=== PATIENT | female | born 1945 | race Caucasian/White ===

== ENCOUNTER 2017-10-21 05:06 | Inpatient (IN) | payer OTHER, MEDICARE ==
[~2017-10-21] VITALS: Ht 172.7 cm; Wt 70.0 kg
[~2017-10-21 05:06] MED LIST: ACET-2144 PO; ASCO100T10 PO; CALC1TAB PO; CELE-193 PO; CETI-102 PO; DOCU-148; LEVO50TA PO; MAGN500C16 PO; OXYB5TAB11 PO; PREVCR VG; SIMV20TA5 PO; WARF1TAB9 PO; [UNRECOGNIZED DRUG - CODE] PO
[2017-10-21] MEDS ORDERED: normal saline 1000ML IV soln IVB ONE (05:40)
[2017-10-21] MEDS ORDERED: pantoprazole 40 MG vial IV ONE (05:40)
[2017-10-21 05:56] LABS: INR 1.1 INR; PARTIAL THROMBOPLASTIN TIME 25 SECONDS (22-32); PROTHROMBIN TIME 11.1 SECONDS (9.0-12.0)
[2017-10-21 06:00] LABS: ALANINE AMINOTRANSFERASE 18 U/L (12-78); ALBUMIN 3.1 G/DL (3.4-5.0); ALBUMIN/GLOBULIN RATIO 0.9 (1.1-1.5); ALKALINE PHOSPHATASE 56 IU/L (46-116); ANION GAP 8 (8-16); ASPARTATE AMINO TRANSFERASE 14 U/L (10-37); BILIRUBIN,TOTAL 0.4 MG/DL (0.1-1.0); BLOOD UREA NITROGEN 31 MG/DL (7-18); BUN/CREATININE RATIO 43.1 (6.6-38.0); CALCIUM 8.1 MG/DL (8.5-10.1); CHLORIDE 110 MMOL/L (99-107); CREATININE 0.72 MG/DL (0.40-0.90); GLUCOSE 114 MG/DL (70-104); LIPASE 99 U/L (73-393); MAGNESIUM 2.3 MG/DL (1.5-2.4); POTASSIUM 4.2 MMOL/L (3.5-5.1); SODIUM 143 MMOL/L (135-145); TOTAL CARBON DIOXIDE 24.6 MMOL/L (24-32); TOTAL PROTEIN 6.5 G/DL (6.4-8.2); eGFR 80 ML/MIN
[2017-10-21 06:02] LABS: BASOPHILS % (AUTO) 0.7 % (0-1); EOSINOPHILS # (AUTO) 0.3 X10'3 (0-0.9); EOSINOPHILS % (AUTO) 4.6 % (0-6); HEMATOCRIT 34.1 % (35.0-45.0); HEMOGLOBIN 11.5 g/dl (12.0-16.0); LYMPHOCYTES # (AUTO) 1.5 X10'3 (1.1-4.8); LYMPHOCYTES % (AUTO) 22.2 % (21-51); MEAN CORPUSCULAR HEMOGLOBIN 30.6 PG (27.0-31.0); MEAN CORPUSCULAR HGB CONC 33.6 % (33.0-36.5); MEAN PLATELET VOLUME 9.4 FL (7.4-10.4); MONOCYTES # (AUTO) 0.5 X10'3 (0-0.9); MONOCYTES % (AUTO) 7.5 % (2-12); NEUTROPHILS # (AUTO) 4.5 X10'3 (1.8-7.7); PLATELET COUNT 173 X10'3 (140-440); RED BLOOD COUNT 3.75 X10'6 (4.20-5.60); RED CELL DISTRIBUTION WIDTH 13.6 % (11.5-14.5); WHITE BLOOD COUNT 6.9 X10'3 (4.5-11.0)
[2017-10-21] MEDS ORDERED: ondansetron/PF 4mg/2ml inj IV ONE (06:55)
[2017-10-21 08:32] LABS: CLARITY,URINE SLIGHTLY CLOUDY (Clear); COLOR,URINE YELLOW (Yellow); GLUCOSE, URINE NEGATIVE (Neg); KETONES,URINE TRACE mg/dl (Neg); LEUKOCYTE ESTERASE ,URINE MODERATE (Neg); NITRITES, URINE NEGATIVE (Neg); OCCULT BLOOD,URINE LARGE (Neg); PH,URINE 6.5 (4.8-8.0); PROTEIN,URINE TRACE mg/dl (Neg); UROBILINOGEN,URINE 0.2 E.U/dL (0.2-1.0)
[2017-10-21] MEDS ORDERED: pantoprazole IV 80 MG in normal saline 100ml IV soln 100 ML IV ONE ×4 (08:40)
[2017-10-21 08:42] LABS: UA COLLECTION TYPE OTHER
[2017-10-21 08:44] LABS: BACTERIA,URINE 3+ /HPF (Neg); MUCUS STRANDS FEW /LPF (Neg); RBC,URINE 0-2 /HPF (0-2); SQUAMOUS EPITHELIAL CELL,UR FEW /LPF (FEW)
[2017-10-21] MEDS ORDERED: magnesium hydroxide 30ml (MOM) UD suspension PO PRN (09:30)
[2017-10-21] MEDS ORDERED: acetaminophen 325mg tablet PO PRN (09:30)
[2017-10-21] MEDS ORDERED: morphine 4 MG/ML inj SYRINge IV PRN (09:30)
[2017-10-21] MEDS ORDERED: potassium Cl 40MEQ/NS 500ml 500 ML IV PRN ×2 (09:30)
[2017-10-21] MEDS ORDERED: magnesium 2GM in 50ml NS 50 ML IV PRN (09:30)
[2017-10-21] MEDS ORDERED: magnesium Cl slow-release 64mg tablet PO PRN (09:30)
[2017-10-21] MEDS ORDERED: mag hydrox/Alum hydrox/simeth 30ml oral suspension PO PRN (09:30)
[2017-10-21] MEDS ORDERED: magnesium 4gm in 100ml NS 100 ML IV PRN (09:30)
[2017-10-21] MEDS ORDERED: potassium Cl 20 mEq SR tablet PO PRN ×2 (09:30)
[2017-10-21] MEDS: dextrose 5%-1/2 normal saline 1,000 ML IV SCH ×2 (10:52→23:37)
[2017-10-21] MEDS ORDERED: pneumococcal 23-VAL P-sac vacc 25 mcg/0.5ml vial IMVAC ONE (13:45)
[2017-10-21] MEDS: ondansetron/PF 4mg/2ml inj IV PRN ×2 (18:08→22:34)
[2017-10-21] MEDS: pantoprazole 40 MG vial IV SCH (20:44)
[2017-10-21] MEDS: oxybutynin 5mg tablet PO SCH (20:44)
[2017-10-21] MEDS ORDERED: atorvastatin 20mg tablet PO SCH (21:00)
[2017-10-21] MEDS ORDERED: levoTHYROXINE 25mcg tablet PO SCH (21:00)
[2017-10-21] MEDS ORDERED: cetirizine 10mg tablet PO SCH (21:00)
[2017-10-21 22:55] VITALS: BP 153/75
[2017-10-22 02:00] VITALS: BP 134/61
[2017-10-22] MEDS ORDERED: metoclopramide 5 mg/ml inj IV PRN (03:35)
[2017-10-22 05:31] LABS: BASOPHILS % (AUTO) 0.4 % (0-1); EOSINOPHILS # (AUTO) 0.1 X10'3 (0-0.9); EOSINOPHILS % (AUTO) 0.9 % (0-6); HEMATOCRIT 29.6 % (35.0-45.0); HEMOGLOBIN 10.3 g/dl (12.0-16.0); LYMPHOCYTES # (AUTO) 0.8 X10'3 (1.1-4.8); LYMPHOCYTES % (AUTO) 10.8 % (21-51); MEAN CORPUSCULAR HEMOGLOBIN 31.1 PG (27.0-31.0); MEAN CORPUSCULAR HGB CONC 34.7 % (33.0-36.5); MEAN CORPUSCULAR VOLUME 89.7 FL (78-98); MEAN PLATELET VOLUME 9.1 FL (7.4-10.4); MONOCYTES # (AUTO) 0.2 X10'3 (0-0.9); MONOCYTES % (AUTO) 2.2 % (2-12); NEUTROPHILS # (AUTO) 6.2 X10'3 (1.8-7.7); NEUTROPHILS % (AUTO) 85.7 % (42-75); PLATELET COUNT 156 X10'3 (140-440); RED BLOOD COUNT 3.31 X10'6 (4.20-5.60); RED CELL DISTRIBUTION WIDTH 13.6 % (11.5-14.5); WHITE BLOOD COUNT 7.2 X10'3 (4.5-11.0)
[2017-10-22 06:00] VITALS: BP 134/68
[2017-10-22 06:43] LABS: ALBUMIN 2.9 G/DL (3.4-5.0); ANION GAP 7 (8-16); BLOOD UREA NITROGEN 16 MG/DL (7-18); BUN/CREATININE RATIO 29.6 (6.6-38.0); CALCIUM 8.1 MG/DL (8.5-10.1); CHLORIDE 108 MMOL/L (99-107); CREATININE 0.54 MG/DL (0.40-0.90); GLUCOSE 142 MG/DL (70-104); MAGNESIUM 1.9 MG/DL (1.5-2.4); POTASSIUM 3.6 MMOL/L (3.5-5.1); SODIUM 140 MMOL/L (135-145); TOTAL CARBON DIOXIDE 24.6 MMOL/L (24-32); eGFR > 90 ML/MIN
[2017-10-22 07:55] VITALS: BP 124/53
[2017-10-22] MEDS ORDERED: docusate sod 100mg capsule PO SCH (08:00)
[2017-10-22] MEDS ORDERED: calcium carbonate/vitamin D3 tablet PO SCH (08:00)
[2017-10-22] MEDS ORDERED: OMEGA-3/DHA/EPA/FISH OIL 1 EACH CAPSULE.DR PO SCH (08:00)
[2017-10-22] MEDS ORDERED: magnesium oxide 400mg tablet PO SCH (08:00)
[2017-10-22] MEDS ORDERED: ascorbic acid 500mg tablet PO SCH (08:00)
[2017-10-22] MEDS ORDERED: K and/or MAG REPLACEMENT MC SCH (08:00)
[2017-10-22] MEDS ORDERED: CefTRIAXone/D5W-Rocephin 1gm 50 ML IV SCH (08:00)
[2017-10-22] MEDS: ondansetron/PF 4mg/2ml inj IV PRN (08:46)
[2017-10-22] MEDS: pantoprazole 40 MG vial IV SCH (08:46)
[2017-10-22 10:30] VITALS: BP 120/55
[2017-10-22] MEDS: oxybutynin 5mg tablet PO SCH (10:43)
[2017-10-22] MEDS: dextrose 5%-1/2 normal saline 1,000 ML IV SCH (12:09)
[2017-10-22] MEDS ORDERED: LEVO500T2 PO (14:58)
[2017-10-22] MEDS ORDERED: PANT-47 PO (14:59)
== END 2017-10-22 17:01 | disposition home or self-care (01) | DRG 377 ==
LOC: ER 05:09 → ED HOLD 09:29 → ORTHO 4S 22:50
PROVIDERS: ADMIT Internal Medicine; ATTEND Internal Medicine
PROC: 3E0234Z Introduction of Serum, Toxoid and Vaccine into Muscle, Percutaneous Approach (ICD-10-PCS; principal; 2017-10-21)
DX: K92.2 Gastrointestinal hemorrhage, unspecified (principal); N17.0 Acute kidney failure with tubular necrosis; N39.0 Urinary tract infection, site not specified; E03.9 Hypothyroidism, unspecified; E78.5 Hyperlipidemia, unspecified; E78.00 Pure hypercholesterolemia, unspecified; Z88.7 Allergy status to serum and vaccine; Z88.0 Allergy status to penicillin; Z91.041 Radiographic dye allergy status; Z88.8 Allergy status to other drugs, medicaments and biological substances; Z23 Encounter for immunization; Z79.899 Other long term (current) drug therapy
CPT/HCPCS: 36415; 70450; 71045; 73630; 80048; 80053; 81001; 83690; 83735; 84484; 85025; 85610; 85730; 86885; 86900; 86901; 87070; 87077; 87088; 87186; 90732; 93005; 96361; 96374; 96375; 99285; C9113; J0696; J2405; J2765; J7030